=== PATIENT | female | born 1980 | race Caucasian/White ===

== ENCOUNTER 2019-11-05 17:18 | Emergency (ER) | payer OTHER, SELFPAY ==
[2019-11-05 17:19] VITALS: BP 159/99; PULSE 109; RESP 18; TEMP 36.7; O2SAT 96; BMI 49.6
[2019-11-05 17:53] LABS: Absolute Lymphocyte Count 2.19 X10^3/uL (0.83-4.51); Absolute Neutrophil Count 10.3 X10^3/uL (2.0-7.7); Basophil# 0.04 X10^3/uL; Basophil% 0.3 % (0-1); Eosinophil# 0.17 X10^3/uL; Eosinophils% 1.2 % (0-5); Hematocrit 37.8 % (37-47); Hemoglobin 13.1 g/dL (12.0-15.0); Lymphocyte # 2.19 X10^3/ul (4.0); Lymphocyte % 16.1 % (19-41); Mean Corp Hgb Conc 34.7 g/dL (32-36); Mean Corpuscular Hgb 29.8 pg (27.0-32.0); Mean Corpuscular Volume 85.9 fL (81-99); Mean Platelet Vol. 10.1 fl (6.2-12.0); Monocyte# 0.84 X10^3/uL; Monocyte% 6.2 % (0-10); NRBC Flagged by Analyzer 0 % (0-5); Neutrophil # 10.34 X10^3/uL (2.7-7.7); Neutrophil % 75.9 % (47-70); Platelet Count 372 K/mm3 (150-450); RBC Distribution Width CV 12.1 % (11.6-14.6); White Blood Count 13.6 K/mm3 (4.4-11.0)
[2019-11-05 18:09] LABS: Internal QC Validated? YES +Cl - CLEAR BKGD; Pregnancy, Serum, hCG Quali. NEGATIVE Negative
[2019-11-05 18:17] LABS: Anion Gap 9 (5-15); BUN 7 mg/dL (7-18); BUN/Creat Ratio 9.8 RATIO (10-20); Chloride 100 mmol/L (98-107); Creatinine, Serum 0.71 mg/dL (0.55-1.02); EST Glomerular Filtration Rate 97 mL/min (>60); Est Glom Filt Rate - Afr Amer 117 mL/min (>60); Estimated Creatinine Clearance 99.59 ml/min; Glucose 104 mg/dL (74-106); Potassium 2.9 mmol/L (3.5-5.1); Sodium Level 136 mmol/L (136-145)
--- NOTE | 2019-11-05 18:25 | ED.DCSUM_ITS ---
History of Present Illness Chief Complaint: Abd Pain Narrative: 38-year-old female with past medical history of hypertension presents with concern for right lower quadrant pain over the past 3 days. States it is been intermittent and sharp. Patient thought it might be related to gynecologic issue. Went to see her FINANCIAL SERVICES REPRESENTATIVE today and had a normal exam. FINANCIAL SERVICES REPRESENTATIVE sent in for rule out appendicitis. Patient has had anorexia without nausea or vomiting. Denies any fever or chills. Denies any urinary symptoms, vaginal bleeding or discharge. LMP 1 week ago. No concern for STDs. Past Medical History - Allergies and Home Meds Allergies/Adverse Reactions: Allergies adhesive tape Adverse Reaction (Verified 11/05/19 17:22) Rash Primary Care Physician: Ros Pabon DO [Primary Care Provider] - Past Medical History: - - Hypertension Surgical History: - - C- section x3 Lives: With Family Smoking Status: Never smoker Alcohol: None Drugs: None Review of Systems General: Denies: Chills, Fever, Sweats Eyes: Denies: Visual changes - bilaterally, Diplopia ENT: Denies: Rhinorrhea, Sore throat Cardiovascular: Denies: Chest pain, Palpitations Respiratory: Denies: Dyspnea, Cough, Dyspnea on exertion Gastrointestinal: Reports: Abdominal pain. Denies: Nausea, Vomiting, Diarrhea, Melena, Hematochezia Genitourinary: Denies: Dysuria, Hematuria, Frequency Musculoskeletal: Denies: Back pain, Extremity Pain Skin: Denies: Rash, Wounds Neurological: Denies: Headache, Weakness, Numbness Physical Exam Vital Signs/Narrative: Vital Signs Temp Pulse Resp BP Pulse Ox 11/05/19 17:19 98.1 F 109 H 18 159/99 H 96 Inital Vital Signs reviewed: Yes General: Well nourished, Well developed, No Acute Distress Head: Normocephalic, Atraumatic Eyes: Perrl, EOMI ENT: Moist mucous membranes, No rhinorrhea Neck: Supple, Nontender Cardiovascular: Regular rate, Regular rhythm, No murmurs Respiratory: No distress, CTA bilaterally, Chest nontender Abdomen: Soft, Nondistended, Normal bowel sounds, - - Tenderness to palpation in the right lower quadrant. Voluntary guarding. No rigidity. Back: Nontender, Normal Inspection Extremities: Nontender, No edema Skin: Normal color, No rash Neurological: Alert, Oriented x3, Cranial nerves II-XII grossly intact, Normal Strength, Normal Sensation Psychological: Normal affect, Normal Mood Diagnostic/Tx/Re-eval Clinical Impression(s) from Imaging Studies Abdomen/Pelvis CT 11/05/19 19:10 IMPRESSION: No bowel obstruction or inflammation. Normal appendix. 2.4 cm right adnexal cyst. Fluid adjacent to the right ovary and tracking along the right ovarian vein. This may represent ovarian vein thrombophlebitis. Further evaluation with a pelvic ultrasound is recommended. Fatty liver. Electronically Signed: Omar Eduar, at 19:47 EDT Tel , Service support , Transvaginal US 11/05/19 19:58 IMPRESSION: No evidence of ovarian torsion. 2.2 cm complex cyst in the right ovary. 1.5 cm simple cyst in the left ovary. Normal sonographic appearance of the uterus. Electronically Signed: Omar Witt, at 20:57 EDT Tel , Service support , Laboratory Data 11/05/19 11/05/19 11/05/19 17:25 17:25 17:25 WBC 13.6 H RBC 4.40 Hgb 13.1 Hct 37.8 MCV 85.9 MCH 29.8 MCHC 34.7 RDW Std Deviation 38.0 RDW Coeff of Awais 12.1 Plt Count 372 MPV 10.1 Immature Gran % (Auto) 0.300 Neut % (Auto) 75.9 H Lymph % (Auto) 16.1 L [place] % (Auto) 6.2 Eos % (Auto) 1.2 Baso % (Auto) 0.3 Absolute Neuts (auto) 10.3 H Absolute Lymphs (auto) 2.19 Nucleated RBC % 0 Sodium 136 Potassium 2.9 L Chloride 100 Carbon Dioxide 27.0 Anion Gap 9 BUN 7 Creatinine 0.71 Estim Creat Clear Calc 99.59 Est GFR (MDRD) Af Amer 117 Est GFR (MDRD) Non-Af 97 BUN/Creatinine Ratio 9.8 L Glucose 104 Lactic Acid Calcium 9.0 Magnesium Serum , Qual NEGATIVE Urine Color Urine Clarity Urine pH Ur Specific [place] Urine Protein Urine Glucose (UA) Urine Ketones Urine Occult Blood Urine Nitrite Urine Bilirubin Urine Urobilinogen Ur Leukocyte Esterase Urine RBC Urine WBC Ur Squamous Epith Cells Urine Bacteria Urine Mucus 11/05/19 11/05/19 11/05/19 17:25 18:30 18:45 WBC RBC Hgb Hct MCV MCH MCHC RDW Std Deviation RDW Coeff of Awais Plt Count MPV Immature Gran % (Auto) Neut % (Auto) Lymph % (Auto) [place] % (Auto) Eos % (Auto) Baso % (Auto) Absolute Neuts (auto) Absolute Lymphs (auto) Nucleated RBC % Sodium Potassium Chloride Carbon Dioxide Anion Gap BUN Creatinine Estim Creat Clear Calc Est GFR (MDRD) Af Amer Est GFR (MDRD) Non-Af BUN/Creatinine Ratio Glucose Lactic Acid 1.2 Calcium Magnesium 2.1 Serum , Qual Urine Color Yellow Urine Clarity Clear Urine pH 7.0 Ur Specific [place] 1.010 Urine Protein Negative Urine Glucose (UA) Normal Urine Ketones Negative Urine Occult Blood 50 H Urine Nitrite Negative Urine Bilirubin Negative Urine Urobilinogen Normal Ur Leukocyte Esterase 25 H Urine RBC 0 SEEN Urine WBC 0-5 SEEN Ur Squamous Epith Cells 0 SEEN Urine Bacteria 0 SEEN Urine Mucus 0 SEEN - Medical Decision Making Appears well and nontoxic. Mildly tachycardic upon arrival. Of 1 L of normal saline as well as Zofran and pain control. CT shows no evidence of appendicitis with concern for right ovarian cyst and possible ovarian vein thrombophlebitis. Ultrasound of the pelvis recommended. Patient found to have a hypokalemia of 2.9. Normal magnesium. Patient will have this replaced both IV and p.o. following a normal ultrasound. Ultrasound just shows the cyst without the thrombophlebitis. Patient will be placed on naproxen at home and already has a scheduled appointment with her FINANCIAL SERVICES REPRESENTATIVE Dr. Cruz within 1 week. Also have her potassium to continue to be repleted for the next 1 week. Asked to return for any new or worsening symptoms. Patient agreeable and discharged home in stable condition. 1. Ovarian cyst 2. Right lower quadrant pain 3. Hypokalemia ED Disposition - Plan for ED Patient: Disposition: Home or Assisted Living Instructions: ED Cyst Ovarian Prescriptions: Naproxen [Naprosyn] 500 mg PO BID PRN #20 tab Prescription Printed Referrals: Ros Pabon DO [Primary Care Provider] -
[2019-11-05 18:57] LABS: Bacteria 0 SEEN /hpf (None Seen); Mucous, Urine 0 SEEN /hpf (<or=2+); Red Blood Cells-Urine 0 SEEN /hpf (0-5); Squamous Epithelial Cells - UA 0 SEEN /hpf (5-10)
--- NOTE | 2019-11-05 19:10 | CT_ITS ---
STUDY: CT ABDOMEN AND PELVIS WITHOUT CONTRAST REASON FOR EXAM: Female, 38 years old. Right lower quadrant pain. RADIATION DOSAGE (If Supplied By Facility): CTDIvol = ( 19.44 ) mGy, DLP = ( 2319.21 ) mGycm TECHNIQUE: Transaxial images were obtained from the dome of the diaphragm to the symphysis pubis without oral contrast, and without intravenous contrast. Sagittal and coronal images were reconstructed. Individualized dose optimization techniques were used for this CT. COMPARISON: None. FINDINGS: Evaluation of the abdominal viscera is limited in the absence of intravenous contrast. The visualized lung bases are clear. The visualized portions of the heart and pericardium are within normal limits. There are no calcified gallstones present. The liver is low in density, consistent with fatty infiltration. The spleen is normal in size. The pancreas demonstrates an unremarkable unenhanced appearance. The adrenal glands are within normal limits. There are no renal or ureteral stones. There is no hydronephrosis. Normal visualized stomach. There is no bowel obstruction or inflammation. The appendix is visualized and appears normal. There is a small fat-containing ventral hernia. The aorta is normal in caliber. There is a 2.4 cm right adnexal cyst. There is fluid adjacent to the right ovary and tracking along the right gonadal vein. There is no free air or fluid collection. There are no destructive osseous lesions. CT/Abdomen/Pelvis W IV Cont ONLY IMPRESSION: No bowel obstruction or inflammation. Normal appendix. 2.4 cm right adnexal cyst. Fluid adjacent to the right ovary and tracking along the right ovarian vein. This may represent ovarian vein thrombophlebitis. Further evaluation with a pelvic ultrasound is recommended. Fatty liver. Electronically Signed: Omar Witt, at 19:47 EDT Tel , Service support ,
[2019-11-05 19:41] LABS: Color, Urine Yellow (Yellow); Glucose, Dipstick Normal (Normal); Ketone-Dipstick Negative (Negative); Leukocyte Esterase-Dipstick 25 /ul (Negative); Nitrite-Dipstick Negative (Negative); Occult Blood-Urine 50 /ul (Negative); Protein-Dipstick Negative (Negative); Urine Bilirubin Dipstick Negative (Negative); Urine Clarity Clear (Clear); Urine Urobilinogen Normal (Normal)
[2019-11-05] MEDS: 0.9% Normal Saline 1,000 ML 1000 ML IV (19:41)
[2019-11-05 19:42] LABS: Magnesium 2.1 mg/dL (1.6-2.6)
[2019-11-05] MEDS: Ketorolac 30 MG/ML Syringe IV (19:42)
[2019-11-05 19:49] LABS: White Blood Cells 0-5 SEEN /hpf (0-5)
--- NOTE | 2019-11-05 19:58 | US_ITS ---
STUDY: ULTRASOUND OF THE FEMALE PELVIS - COMPLETE REASON FOR EXAM: Female, 38 years old. Right ovarian cyst on CT TECHNIQUE: Transabdominal and Transvaginal TECHNICAL QUALITY: Adequate. COMPARISON: CT dated 11/05/19 FINDINGS: The uterus is anteverted and is in a midline position. The uterus measures 9.4 x 7.7 x 3.7 cm. There is a Nabothian cyst of the cervix. The endometrium measures 8 mm in thickness, and is hyperechoic. There is no demonstrated endometrial mass. There is no demonstrated myometrial mass. The right ovary is visualized. The right ovary measures 5.7 x 3.6 x 3.2 cm. There is a 2.2 x 2.2 cm complex cyst in the right ovary. There is no visualized right adnexal mass or complex lesion. There is normal arterial and normal venous vascularity. The left ovary is visualized. The left ovary measures 3.0 x 2.2 x 1.8 cm. There is a 1.5 x 1.3 x 1.0 cm simple cyst in the left ovary. There is no visualized left adnexal mass or complex lesion. There is normal arterial and normal venous vascularity. There is no fluid in the cul-de-sac. US/Transvaginal Non- IMPRESSION: No evidence of ovarian torsion. 2.2 cm complex cyst in the right ovary. 1.5 cm simple cyst in the left ovary. Normal sonographic appearance of the uterus. Electronically Signed: Omar Eduar, at 20:57 EDT Tel , Service support ,
[2019-11-05 20:09] LABS: Lactic Acid 1.2 mmol/L (0.4-1.9)
[2019-11-05] MEDS: Potassium Chloride 10mEq/100mL 10 MEQ/100 ML IV.SOLN. 100 MEQ IV BOLUS (20:13)
[2019-11-05 21:52] VITALS: BP 154/99; PULSE 88; RESP 18; O2SAT 98
== END 2019-11-05 22:01 | disposition home or self-care (01) ==
PROVIDERS: Emergency Provider Emergency Medicine; PCP Family Medicine
DX: N83.201 Unspecified ovarian cyst, right side (principal); E87.6 Hypokalemia; I10 Essential (primary) hypertension; Z79.899 Other long term (current) drug therapy
CPT/HCPCS: 74177; 76830; 80048; 81001; 83605; 83735; 84703; 85025; 96361; 96365; 96366; 96375; 99285; J7030; Q9967; A4216

== ENCOUNTER → 2019-11-12 | Outpatient (CLI) | payer OTHER, SELFPAY ==
[2019-11-05 17:19] VITALS: BMI 49.6
[2019-11-15 14:23] LABS: HPV APTIMA, High Risk Negative (Negative)
== END | disposition home or self-care (01) ==
LOC: LABSPEC 16:49
PROVIDERS: PCP Family Medicine; Visit Provider Obstetrics & Gynecology
DX: Z12.4 Encounter for screening for malignant neoplasm of cervix (principal)
CPT/HCPCS: 87624; 88175; G0145

== ENCOUNTER → 2020-06-18 16:51 | Outpatient (CLI) | payer OTHER, SELFPAY ==
[2020-06-18 17:20] LABS: Hematocrit 30.1 % (37-47); Hemoglobin 9.7 g/dL (12.0-15.0); Mean Corp Hgb Conc 32.2 g/dL (32-36); Mean Corpuscular Hgb 25.6 pg (27.0-32.0); Mean Corpuscular Volume 79.4 fL (81-99); Mean Platelet Vol. 9.5 fl (6.2-12.0); Platelet Count 501 K/mm3 (150-450); RBC Distribution Width CV 14.6 % (11.6-14.6); Red Blood Count 3.79 M/mm3 (4.2-5.4); White Blood Count 9.2 K/mm3 (4.4-11.0)
[2020-06-18 18:05] LABS: Anion Gap 6 (5-15); BUN 8 mg/dL (7-18); BUN/Creat Ratio 10.3 RATIO (10-20); Calcium,Total 9.3 mg/dL (8.5-10.1); Chloride 104 mmol/L (98-107); Creatinine, Serum 0.78 mg/dL (0.55-1.02); EST Glomerular Filtration Rate 87 mL/min (>60); Est Glom Filt Rate - Afr Amer 106 mL/min (>60); Follicle Stimulating Hormone 3.8 mIU/mL; Glucose 90 mg/dL (74-106); Luteinizing Hormone 4.1 mIU/mL; Prolactin 14.2 ng/mL; Sodium Level 137 mmol/L (136-145); T4 Free Direct 1.09 ng/dL (0.76-1.46); Thyroid Stim Hormone (TSH) 2.41 uIU/mL (0.358-3.74)
[2020-06-23 15:34] LABS: Testosterone Free 1.7 pg/mL (0.0-4.2)
[2020-06-28 17:29] LABS: 17-Hydroxyprogesterone 25 ng/dL (.)
== END ==
LOC: WOBLAB 16:52
PROVIDERS: PCP Family Medicine; Visit Provider Obstetrics & Gynecology
DX: N93.9 Abnormal uterine and vaginal bleeding, unspecified (principal)
CPT/HCPCS: 36415; 80048; 82627; 83001; 83002; 83498; 84146; 84402; 84439; 84443; 85027; 82626